=== PATIENT | female | born 2000 | race Caucasian/White ===

== ENCOUNTER 2020-01-20 17:27 | Emergency (ER) | payer MEDICAID ==
[~2020-01-20] VITALS: Ht 162.6 cm; Wt 79.2 kg
[2020-01-20 17:43] VITALS: BP 121/74
[2020-01-20] MEDS ORDERED: IBUPROFEN 600MG TABLET PO ONE (20:30)
== END 2020-01-20 20:45 | disposition home or self-care (01) ==
LOC: ER 17:27
DX: S63.601A Unspecified sprain of right thumb, initial encounter (principal); X50.0XXA Overexertion from strenuous movement or load, initial encounter; Y93.89 Activity, other specified; Y92.89 Other specified places as the place of occurrence of the external cause
CPT/HCPCS: 29125; 99283

== ENCOUNTER 2021-10-16 09:42 | Emergency (ER) | payer MEDICAID ==
[~2021-10-16] VITALS: Ht 165.1 cm; Wt 84.0 kg
[2021-10-16] MEDS ORDERED: ACETAMINOPHEN 325MG TABLET PO ONE (10:00)
[2021-10-16] MEDS ORDERED: CEPH500T PO (10:38)
[2021-10-16] MEDS ORDERED: SULF1TAB48 PO (10:38)
[2021-10-16] MEDS ORDERED: TOPUD PO (10:39)
[2021-10-16 11:22] VITALS: BP 121/77
== END 2021-10-16 11:24 | disposition home or self-care (01) ==
LOC: ER 09:42
DX: L03.116 Cellulitis of left lower limb (principal); W01.0XXA Fall on same level from slipping, tripping and stumbling without subsequent striking against object, initial encounter; Y93.89 Activity, other specified; Y92.89 Other specified places as the place of occurrence of the external cause; Y99.8 Other external cause status
CPT/HCPCS: 73562; 99283; L1830

== ENCOUNTER 2022-04-30 11:32 | Emergency (ER) | payer MEDICAID ==
[~2022-04-30] VITALS: Ht 167.6 cm; Wt 79.0 kg
[~2022-04-30 11:32] MED LIST: CEPH500T PO; SULF1TAB48 PO; TOPUD PO
[2022-04-30 11:47] VITALS: BP 121/69
[2022-04-30] MEDS ORDERED: ONDANSETRON HCL 4MG TABLET PO ONE (12:45)
[2022-04-30 13:18] LABS: CLARITY URINE CLEAR (CLEAR); COLOR URINE YELLOW (YELLOW); KETONES URINE NEGATIVE (NEGATIVE); LEUKOCYTE ESTERASE URINE NEGATIVE (NEGATIVE); NITRITE URINE NEGATIVE (NEGATIVE); OCCULT BLOOD URINE NEGATIVE (NEGATIVE); PROTEIN URINE NEGATIVE (NEGATIVE); UROBILINOGEN URINE 0.2 E.U./dL (0.2-1.0)
== END 2022-04-30 14:11 | disposition home or self-care (01) ==
LOC: ER 12:22
DX: B34.9 Viral infection, unspecified (principal)
CPT/HCPCS: 81003; 99283; Q0162